=== PATIENT | female | born 1980 | race Caucasian/White ===

== ENCOUNTER 2020-04-30 06:54 | Day surgery (SDC) | payer BC ==
[~2020-04-30 06:54] MED LIST: Lactated Ringers 1,000 ML IV SCH; Sodium Chloride 0.9% 10 ML SDV IV PRN; Sodium Chloride 0.9% 10 ML Syringe FLUSH PRN; Sodium Chloride 0.9% 2.5 ML Syringe FLUSH PRN
[2020-04-30] MEDS ORDERED: fentaNYL 250 MCG/5 ML SDV ONE (07:08)
[2020-04-30] MEDS ORDERED: Midazolam 1 MG/ML 2 ML SDV ONE (07:08)
[2020-04-30] MEDS ORDERED: Lidocaine 2% 5 ML SDV ONE (07:08)
[2020-04-30] MEDS ORDERED: Propofol 200 MG/20 ML SDV ONE (07:08)
[2020-04-30] MEDS ORDERED: Ondansetron 4 MG/2 ML SDV ONE (07:08)
--- NOTE | 2020-04-30 08:28 | PCM.PREANE ---
Preanesthetic Assessment - Anesthesia/Transfusion/Family Hx Anesthesia History: No Prior Anesthesia Family History of Anesthesia Reaction: No Transfusion History: Prior Transfusion Without Reaction - Review of Systems General: No Symptoms Pulmonary: No Symptoms Cardiovascular: No Symptoms Gastrointestinal: No Symptoms Neurological: No Symptoms Other: Reports: None - Physical Assessment NPO Status Date: 04/29/20 (cl this am 0630) Vital Signs: Last Vital Signs Temp 97.7 F 04/30/20 07:45 Pulse 73 04/30/20 07:45 Resp 16 04/30/20 07:45 BP 127/75 04/30/20 07:45 Pulse Ox 100 04/30/20 07:45 Height: 5 ft 3 in Weight: 60.328 kg ASA Class: 1 Mental Status: Alert & Oriented x3 Airway Class: Mallampati = 2 Dentition: Reports: Normal Dentition ROM/Head Extension: Full Lungs: Clear to Auscultation, Normal Respiratory Effort Cardiovascular: Regular Rate, Regular Rhythm - Lab Values: Laboratory Last Values WBC 4.84 K/uL (4.0-11.0) 04/30/20 08:10 RBC 4.43 M/uL (4.30-5.90) 04/30/20 08:10 Hgb 11.8 g/dL (12.0-16.0) L 04/30/20 08:10 Hct 37.8 % (36.0-46.0) 04/30/20 08:10 MCV 85.3 fL (80.0-98.0) 04/30/20 08:10 MCH 26.6 pg (27.0-32.0) L 04/30/20 08:10 MCHC 31.2 g/dL (31.0-37.0) 04/30/20 08:10 RDW Std Deviation 46.9 fl (28.0-62.0) 04/30/20 08:10 RDW Coeff of Cristina 15 % (11.0-15.0) 04/30/20 08:10 Plt Count 207 K/uL (150-400) 04/30/20 08:10 MPV 10.40 fL (7.40-12.00) 04/30/20 08:10 Nucleated RBC % 0.0 /100WBC 04/30/20 08:10 Nucleated RBCs # 0 K/uL 04/30/20 08:10 COVID-19 (DARYN) NEGATIVE (NEGATIVE) 04/30/20 07:23 - Allergies Allergies/Adverse Reactions: Allergies Allergy/AdvReac Type Severity Reaction Status Date / Time No Known Allergies Allergy Verified 04/27/20 11:59 - Blood Blood Available: No - Anesthesia Plan Pre-Op Medication Ordered: None - Acknowledgements Anesthesia Type Planned: General Anesthesia Pt an Appropriate Candidate for the Planned Anesthesia: Yes Alternatives and Risks of Anesthesia Discussed w Pt/Guardian: Yes Pt/Guardian Understands and Agrees with Anesthesia Plan: Yes Additional Comments: PMH: gerd PLAN: GA/LMA PreAnesthesia Questionnaire [employer] History: Reports: Fibroids, Spontaneous Hematologic History: Reports: Blood Transfusion(s) Other Hematologic History: hx of blood transfusions in [place] - Past Surgical History Head Surgeries/Procedures: Reports: None - SUBSTANCE USE Smoking Status *Q: Never Smoker Recreational Drug Use History: No - HOME MEDS Home Medications: Home Meds Ascorbate Calcium [Vitamin C] 500 mg PO DAILY 04/14/20 [History] - CURRENT (IN HOUSE) MEDS Current Meds: Current Medications Lactated Ringer's (Ringers, Lactated) 1,000 mls @ 100 mls/hr IV ASDIRECTED WENDY Sodium Chloride (Saline Flush) 10 ml FLUSH ASDIRECTED PRN PRN Reason: Keep Vein Open Sodium Chloride (Saline Flush) 2.5 ml FLUSH ASDIRECTED PRN PRN Reason: Keep Vein Open Sodium Chloride (Normal Saline) 10 ml IV ASDIRECTED PRN PRN Reason: IV Use Discontinued Medications Fentanyl (Sublimaze) Confirm Administered Dose 250 mcg .ROUTE .STK-MED ONE Stop: 04/30/20 07:09 Lidocaine (Xylocaine-Mpf 2%) Confirm Administered Dose 5 ml .ROUTE .STK-MED ONE Stop: 04/30/20 07:09 Midazolam HCl (Versed 1 Mg/Ml) Confirm Administered Dose 2 mg .ROUTE .STK-MED ONE Stop: 04/30/20 07:09 Ondansetron HCl (Zofran) Confirm Administered Dose 4 mg .ROUTE .STK-MED ONE Stop: 04/30/20 07:09 Propofol (Diprivan 20 Ml) Confirm Administered Dose 200 mg .ROUTE .STK-MED ONE Stop: 04/30/20 07:09
[2020-04-30] MEDS ORDERED: Sodium Chloride 0.9% 10 ML SDV IV PRN (09:31)
[2020-04-30] MEDS ORDERED: Sodium Chloride 0.9% 10 ML Syringe FLUSH PRN (09:31)
[2020-04-30] MEDS ORDERED: Sodium Chloride 0.9% 2.5 ML Syringe FLUSH PRN (09:31)
[2020-04-30] MEDS ORDERED: ePHEDrine 50 MG/ML SDV ONE (09:49)
[2020-04-30] MEDS ORDERED: Atropine 0.1 MG/ML 10 ML Syringe IVPUSH PRN ×2 (10:11)
[2020-04-30] MEDS ORDERED: Naloxone 0.4 MG/ML Syringe IVPUSH PRN (10:11)
[2020-04-30] MEDS ORDERED: EPINEPHrine 1:10,000 1 MG/10 ML Syringe IVPUSH PRN (10:11)
[2020-04-30] MEDS ORDERED: fentaNYL 100 MCG/2 ML SDV IVPUSH PRN (10:11)
[2020-04-30] MEDS ORDERED: Albuterol 0.083% 2.5 MG/3 ML Neb Soln NEB PRN (10:11)
[2020-04-30] MEDS ORDERED: 50% Dextrose in Water 50 ML Syringe IVPUSH PRN (10:11)
[2020-04-30] MEDS ORDERED: Ketorolac 30 MG/ML SDV IVPUSH PRN (10:25)
[2020-04-30] MEDS ORDERED: Ondansetron 4 MG/2 ML SDV IVPUSH PRN (10:25)
[2020-04-30] MEDS ORDERED: Ketorolac 30 MG/ML SDV IVPUSH ONE (10:25)
[2020-04-30] MEDS ORDERED: Acetaminophen/oxyCODONE 325-5 MG Tab PO PRN ×2 (10:25)
[2020-04-30] MEDS ORDERED: Morphine 4 MG/ML Syringe IVPUSH PRN (10:25)
[2020-04-30] MEDS ORDERED: Promethazine 25 MG/ML SDV IM PRN (10:25)
--- NOTE | 2020-04-30 10:31 | PCM.OPNOTE ---
- General Post-Op/Procedure Note Date of Surgery/Procedure: 04/30/20 Operative Procedure(s): Operative Hysteroscopy with removal of endometrial lesion Findings: EUA shows 10 week sized irregular shaped fibroid uterus Hysteroscopy showed 2 endometrial lesion along the upper and mid posterior uteri ne wall Pre Op Diagnosis: Infertility. Endometrial Polyp Post-Op Diagnosis: same. Endometrial polyp vs fibroid Anesthesia Technique: General LMA Primary Surgeon: Jose Chau Anesthesia Provider: Jim Anaya Director Of Healthcare Systems: MS Ramirez Pathology: Endometrial lesion Endometrial currettings Fluid Replacement, Intraop: 900 EBL in mLs: 5 Complications: None Condition: Good Free Text/Narrative:: Fluid deficit: 1160 NS Intake & Output 04/29/20 04/30/20 04/30/20 22:59 06:59 14:59 Output Total 50 Balance -50
--- NOTE | 2020-04-30 10:43 | PCM.POSTAN ---
POST ANESTHESIA ASSESSMENT - MENTAL STATUS Mental Status: Alert, Oriented - VITAL SIGNS Vital Signs: Last Vital Signs Temp 97.0 F 04/30/20 10:18 Pulse 96 04/30/20 10:39 Resp 16 04/30/20 10:39 BP 132/84 04/30/20 10:39 Pulse Ox 100 04/30/20 10:39 - RESPIRATORY Respiratory Status: Respiratory Rate WNL, Airway Patent, O2 Saturation Stable - CARDIOVASCULAR CV Status: Pulse Rate WNL, Blood Pressure Stable - GASTROINTESTINAL GI Status: No Symptoms - PAIN Pain Score: 0 - POST OP HYDRATION Hydration Status: Adequate & Stable
--- NOTE | 2020-04-30 11:38 | PCM48HPAN ---
Post Anesthesia Note - EVALUATION WITHIN 48HRS OF ANESTHETIC Vital Signs in Normal Range: Yes Patient Participated in Evaluation: Yes Respiratory Function Stable: Yes Airway Patent: Yes Cardiovascular Function Stable: Yes Hydration Status Stable: Yes Pain Control Satisfactory: Yes Nausea and Vomiting Control Satisfactory: Yes Mental Status Recovered: Yes Vital Signs: Last Vital Signs Temp 96.6 F L 04/30/20 10:48 Pulse 73 04/30/20 11:10 Resp 14 04/30/20 11:10 BP 133/83 04/30/20 11:10 Pulse Ox 100 04/30/20 11:10
--- NOTE | 2020-05-03 09:52 | OR ---
SURGEON: SHANIA SHARPE DATE OF PROCEDURE: 04/30/2020 PREOPERATIVE DIAGNOSIS: A 39-year-old, para 0, with endometrial lesion. POSTOPERATIVE DIAGNOSIS: A 39-year-old, para 0, with endometrial lesion. PROCEDURE: Operative hysteroscopy with removal of endometrial lesion and endometrial curetting. ESTIMATED BLOOD LOSS: 5 mL. IV FLUIDS: 900. ANESTHESIA: Epidural. FLUID DEFICIT: 1160 of normal saline. COMPLICATIONS: None. NOTES AND FINDINGS: Examination under anesthesia revealed a 10-week irregular sized fibroid uterus. Hysteroscopy showed two lesions noted in the posterior middle to upper part of the endometrial cavity. Bilateral ostia were visualized. BRIEF HISTORY ABOUT THE PATIENT: She is 39-year-old, para 0, who came in for evaluation for infertility. She had ultrasound done, which showed an abnormal endometrial thickness. She had a followup saline ultrasound done that showed intracavitary endometrial lesion. As a result of this, she was counseled for an operative hysteroscopy. She was also given the option of conservative management. She desired to go ahead with operative hysteroscopy. She was explained the risks, benefits, and alternatives, and she desired to proceed. DESCRIPTION OF PROCEDURE: The patient was taken to the operating room where general anesthesia was performed without difficulty. She was prepared and draped in the dorsal lithotomy position with Mumtaz stirrups. The cervix was prepared and was exposed with a speculum. The anterior lip of the cervix was held with an Allis and was dilated to accommodate the MyoSure hysteroscope. The MyoSure hysteroscope was placed then through the cervix to the visualize lesion in the endometrial cavity. The lesion was identified and with the MyoSure device. The lesion was removed without any difficulty. The MyoSure was then withdrawn, the Allis was withdrawn, and the cervix was noted and noted to be hemostatic. After the MyoSure was withdrawn, a size 2 curette was used to curette the [place] of the endometrium and was sent for pathology. All devices were withdrawn from the uterus and the vagina. The patient tolerated the procedure well. All instrument and pad counts were correct x2. LINDSAY / LAURA /[id number] FINA
== END 2020-04-30 12:59 | disposition home or self-care (01) ==
LOC: MW.SDS 06:54
PROVIDERS: ATTEND Obstetrics & Gynecology
DX: N85.8 Other specified noninflammatory disorders of uterus (principal); N97.9 Female infertility, unspecified; Z01.812 Encounter for preprocedural laboratory examination; Z20.828 Contact with and (suspected) exposure to other viral communicable diseases
CPT/HCPCS: 36415; 58563; 84703; 85027; 87635; A9270; J2001; J2250; J2704; J3010; J7120; 00952; 88305; J2405; U0002